=== PATIENT | male | born 1975 | race African-American/Black ===

== ENCOUNTER 2020-03-06 20:13 | Emergency (ER) | payer MEDICAID ==
[~2020-03-06] VITALS: Ht 175.3 cm; Wt 87.0 kg
[2020-03-06] MEDS ORDERED: LIDOCAINE HCL/PF 1% 10 MG/ML 5ML VIAL IJ ONE (21:00)
[2020-03-06] MEDS ORDERED: IBUPROFEN 600MG TABLET PO STA (22:32)
[2020-03-07 00:57] VITALS: BP 121/84
== END 2020-03-07 01:00 | disposition home or self-care (01) ==
LOC: ER 20:13
DX: L02.31 Cutaneous abscess of buttock (principal)
CPT/HCPCS: 10060; 99283; J3490